=== PATIENT | male | born 1975 | race Caucasian/White ===

== ENCOUNTER 2019-06-30 12:55 | Inpatient (IN) ==
[2019-06-30 14:24] LABS: BASO# 0.02 X1000 (0.0-0.2); BASO% 0.4 % (0.0-0.8); EOS# 0.04 X1000 (0.0-0.7); EOS% 0.8 % (0.0-10.0); HEMATOCRIT 41.5 % (42.0-52.0); HEMOGLOBIN 13.5 g/dL (14.0-18.0); IMM GRAN# 0.02 X1000 (0.0-0.04); IMM GRAN% 0.4 % (0.0-0.5); LYMPH# 1.28 X1000 (1.2-3.4); LYMPH% 24.2 % (20.5-51.1); MCH 27.1 PG (27-31); MCHC 32.5 g/dL (33-37); MCV 83.3 FL (81-99); MONO# 0.72 X1000 (0.11-0.59); MONO% 13.6 % (1.7-9.3); MPV 9.9 FL (7.4-10.4); NEUT# 3.21 X1000 (1.4-6.5); NEUT% 60.6 % (42.2-75.2); PLT 252 X1000 (130-400); RBC 4.98 XMIL (4.7-6.1); RDW 13.1 % (11.5-14.5); WBC 5.29 X1000 (4.8-10.8)
[2019-06-30 14:36] LABS: AGAP 13; ALKALINE PHOSPHATASE 47 U/L (32-122); BUN 24 mg/dL (8-22); CALCIUM 8.9 mg/dL (8.8-10.2); CHLORIDE 104 mmol/L (98-107); COSMO 282; ESTIMATED GFR > 60; GLUCOSE 103 mg/dL (70-104); GOT 75 U/L (10-34); GPT 65 U/L (10-44); POTASSIUM 4.6 mmol/L (3.5-5.1); SODIUM 139 mmol/L (136-145); TCO2 22 mmol/L (25-35); TOTAL PROTEIN 7.4 g/dL (6.3-8.3)
--- NOTE | 2019-06-30 15:00 | Diag Imaging Result Doc PS360 ---
EXAM: CHEST-2 VIEWS HISTORY: sob/recent pna dx TECHNIQUE: PA and Lateral chest x-ray COMPARISON: None. FINDINGS: The cardiomediastinal silhouette is within normal limits. The pulmonary vasculature is not congested. There are bilateral perihilar interstitial infiltrates right greater than left. No pneumothorax is identified. There may be trace posterior effusions. Findings are suspicious for pneumonia, likely atypical pneumonia such as viral or mycoplasma. Recommend follow-up to document clearing. IMPRESSION: Bilateral interstitial infiltrates suspicious for pneumonia, possibly atypical pneumonia such as viral or mycoplasma pneumonia. Recommend follow-up to document complete clearing. Electronically signed by Yesica Hwang 06/30/2019 2:57 PM
[2019-06-30 15:41] LABS: BE 0.4 mmoll (-3.0-3.0); BLOOD TYPE ARTERIAL; HCO3-(ACT) 25.1 mmoll (20.0-26.0); O2(CT) 19.3 mL/dL (15.0-23.0); O2HB 93.6 % (95.0-99.0); PCO2(98.6) 32 mmHg (35-45); PO2(98.6) 64 mmHg (60-100); SAMPLE BLOOD; SAO2 96.3 % (95.0-100.0); THB 14.7 g/dL (11.5-17.4); pH(98.6) 7.47 (7.35-7.45)
[2019-06-30 15:45] LABS: ALLEN TEST YES; MODALITY ROOM AIR
--- NOTE | 2019-06-30 16:00 | PROVIDER DOCUMENTATION ---
This chart was entered by Bailey Sahni Scribe, acting as scribe for Jamir Diallo MD. HPI-Respiratory General - General Chief Complaint: Shortness of Breath Stated Complaint: FLU SX Time Seen by Provider: 06/30/19 14:49 Source: patient, family Allergies/Adverse Reactions: Patient Allergies Allergy/AdvReac Type Severity Reaction Status Date / Time No Known Allergies Allergy Verified 06/30/19 13:02 Home Medications: Home Medication List Medication Instructions Recorded Confirmed Last Taken Type Hydrocodone/APAP 5 mg/325 mg 1 - 2 tab PO Q6H PRN PRN #18 tablet 11/03/14 11/07/14 11/07/14 23:30 Rx [[place]-5] Promethazine [Phenergan] 1 - 2 tab PO Q6H PRN PRN #18 tablet 11/03/14 11/07/14 11/07/14 23:30 Rx Sertraline [Zoloft] 50 mg DAILY 11/03/14 11/07/14 11/06/14 History - History of Present Illness-Resp Nature of Presenting Problem: 43 yowm presents to the ed with c/o sob, productive cough and intermittent fever. pt was dx with flu and PNA on 06/26/19 and is currently on Levquin 750mg daily for 7 days but sts sx have not improved. Quality of Pain: reports: fullness Severity in ED: reports: moderate Onset/Duration: reports: other (06/26/19) Timing: reports: still present Context: reports: other (recent dx of flu and PNA) Cough Quality/Degree: reports: moderate, productive cough (brown sputum) Episode Frequency: other (recent dx) Current Respiratory Medication Therapy: Initiated see nurses note Modifying Factors: worse with: exertion, coughing Associated Symptoms: reports: cough, fever/chills, flu-like symptoms, hurts to breathe, shortness of breath, wheezing Similar Symptoms Previously?: Yes (dx flu and PNA) Recently seen or treated by another doctor?: Yes (pcp) Review of Systems - Adult - REVIEW OF SYSTEMS - ADULT Constitutional: reports: see HPI, chills, fever Eyes: reports: no symptoms reported Ears, Nose, Mouth & Throat: reports: no symptoms reported Cardiovascular: denies: chest pain, palpitations, syncope Respiratory: reports: see HPI, cough, dyspnea on exertion, excessive sputum production (brown), shortness of breath, wheezing Gastrointestinal: denies: diarrhea, nausea, vomiting Genitourinary: reports: no symptoms reported Musculoskeletal: denies: back pain, neck pain Integumentary: reports: no symptoms reported Neurological: denies: dizziness/vertigo, headache/migraines Psychiatric: reports: no symptoms reported Endocrine: reports: no symptoms reported Hematologic/Lymphatic: reports: no symptoms reported Allergic/Immunologic: reports: no symptoms reported All Other Systems: Reviewed and Negative Past History - Adult - PAST MEDICAL HISTORY-ADULT Review of Records: reports: Old Records Reviewed, Nursing Assessment Review, Medications Reviewed, Social history reviewed & non-contributory. 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) Musculoskeletal: reports: denies history Neurological: reports: denies history Psychiatric: reports: anxiety, depression Endocrine/Immune: reports: denies history Other Conditions: reports: denies history - PRIOR SURGERIES/PROCEDURES Surgical/Procedure History: reports: tonsillectomy - IMMUNIZATION STATUS Childhood Immunizations: See Nurse Assessment Flu Vaccine: See Nurse Assessment - FAMILY HISTORY Family History: reviewed, not pertinent - SOCIAL HISTORY Smoking: non-smoker Substance Use: alcohol Alcohol Use Frequency: occasionally Number of drinks per typical drinking period:: 3-4 drinks Living Situation: family Physical Exam-General - PHYSICAL EXAM-ADULT Initial Vital Signs Reviewed: Yes - CONSTITUTIONAL General Appearance: alert, no apparent distress (pt looks to not feel well) - EYES Eyes: PERRL/EOMI, pink conjunctivae - HEAD, EARS, NOSE, MOUTH & THROAT HENMT: moist mucous membranes, TMs normal, pharyngeal erythema - NECK Neck: non-tender, full range of motion, supple, normal inspection - RESPIRATORY Respiratory: chest non-tender, no pleuratic chest pain, no respiratory distress, no accessory muscle use, rhonchi (bilateral), wheezing (with expiration) - CARDIOVASCULAR Cardiovascular: normal peripheral pulses, regular rate, rhythm - CHEST (BREASTS) Chest/Breast: deferred - GASTROINTESTINAL (ABDOMEN) Abdominal Exam: normal bowel sounds, non tender, soft - GENITOURINARY Male Genitalia: deferred Rectal Exam: deferred Hemoccult Exam: deferred - LYMPHATIC Lymphatic: no adenopathy - MUSCULOSKELETAL Back Exam: normal inspection, no CVA tenderness, no vertebral tenderness Extremity: normal range of motion, non-tender, normal gait, normal inspection, pelvis stable - SKIN Integumentary: normal color, normal turgor, warm/dry - NEUROLOGIC Neurologic: grossly normal - PSYCHIATRIC Psych/Mental Status: normal mood/affect, normal thought content, normal thought process, oriented x 3 Progress - PLAN OF CARE/RESULTS Progress/Plan/Lab Results: Vital Signs - 8 hr 06/30/19 12:58 06/30/19 15:42 06/30/19 16:51 Temperature 97.5 F L Pulse Rate 84 74 67 Respiratory Rate 20 21 20 Blood Pressure 146/80 116/88 O2 Sat by Pulse Oximetry 95 96 Laboratory Results - last 24 hr 06/30/19 06/30/19 06/30/19 14:12 14:12 15:30 WBC 5.29 RBC 4.98 Hgb 13.5 L Hct 41.5 L MCV 83.3 MCH 27.1 MCHC 32.5 L RDW Std Deviation 13.1 Plt Count 252 MPV 9.9 Immature Gran % (Auto) 0.4 Neut % (Auto) 60.6 Lymph % (Auto) 24.2 Victoria % (Auto) 13.6 H Eos % (Auto) 0.8 Baso % (Auto) 0.4 Immature Gran # (Auto) 0.02 Neut # (Auto) 3.21 Lymph # (Auto) 1.28 Victoria # (Auto) 0.72 H Eos # (Auto) 0.04 Baso # (Auto) 0.02 Segmented Neutrophils Not Reportable Specimen Type ARTERIAL Sample Site L RADIAL pH 7.47 H pCO2 32 L pO2 64 HCO3 25.1 Base Excess 0.4 Oxyhemoglobin 93.6 L ABG O2 Sat (Calculated) 19.3 ABG O2 Saturation 96.3 ABG Carboxyhemoglobin 1.80 ABG Methemoglobin 1.0 Vj Test YES A-a O2 Difference 46.0 Total Hemoglobin 14.7 Lactate 0.80 Blood Gas Modality ROOM AIR FiO2 % 21.0 Sodium 139 Potassium 4.6 Chloride 104 Carbon Dioxide 22 L Anion Gap 13 BUN 24 H Creatinine 1.0 Estimated GFR/1.73 m2 > 60 BUN/Creatinine Ratio 24 Glucose 103 Calculated Osmolality 282 Calcium 8.9 Total Bilirubin 0.30 AST 75 H ALT 65 H Alkaline Phosphatase 47 Total Protein 7.4 Albumin 4.0 Globulin 3.0 Albumin/Globulin Ratio 1.0 Plasma Lactate 06/30/19 15:30 WBC RBC Hgb Hct MCV MCH MCHC RDW Std Deviation Plt Count MPV Immature Gran % (Auto) Neut % (Auto) Lymph % (Auto) Victoria % (Auto) Eos % (Auto) Baso % (Auto) Immature Gran # (Auto) Neut # (Auto) Lymph # (Auto) Victoria # (Auto) Eos # (Auto) Baso # (Auto) Segmented Neutrophils Specimen Type Sample Site pH pCO2 pO2 HCO3 Base Excess Oxyhemoglobin ABG O2 Sat (Calculated) ABG O2 Saturation ABG Carboxyhemoglobin ABG Methemoglobin Jv Test A-a O2 Difference Total Hemoglobin Lactate Blood Gas Modality FiO2 % Sodium Potassium Chloride Carbon Dioxide Anion Gap BUN Creatinine Estimated GFR/1.73 m2 BUN/Creatinine Ratio Glucose Calculated Osmolality Calcium Total Bilirubin AST ALT Alkaline Phosphatase Total Protein Albumin Globulin Albumin/Globulin Ratio Plasma Lactate 1.0 Orders Category Date Time Status Use ED:PneumoniaAdultSet As Ordered Care 06/30/19 14:04 Active CHEST-2 VIEWS [RAD] Stat Exams 06/30/19 14:04 Completed ABG [RESP] Routine Lab 06/30/19 15:30 Completed BLOOD CULTURE [BLDCUL] Stat Lab 06/30/19 14:05 Ordered CBC WITH ELECTRONIC DIFF [HEME] Stat Lab 06/30/19 14:12 Completed COMPREHENSIVE METABOLIC PANEL [CHEM] Stat Lab 06/30/19 14:12 Completed LACTATE, PLASMA [CHEM] Stat Lab 06/30/19 15:30 Completed Albuterol [Albuterol Neb] Med 06/30/19 16:22 Discontinued 2.5 mg INH NOW ONE Aerosol Treatments Routine Oth 06/30/19 16:22 Completed Aerosol Treatments Stat Oth 06/30/19 16:22 Completed Pneumonia (suspected) Stat Oth 06/30/19 14:04 Ordered Result Diagrams: 06/30/19 14:12 06/30/19 14:12 - REASSESSMENT Reassessment #1 Time Reassessed: 17:01 ( at bedside speaking with pt ) Status: unchanged - XRAY 1 XRAY: Bilateral XRAY Study: Chest Impression: See EMR Report (EXAM: CHEST-2 VIEWS HISTORY: sob/recent pna dx TECHNIQUE: PA and Lateral chest x-ray COMPARISON: None. FINDINGS: The cardiomediastinal silhouette is within normal limits. The pulmonary vasculature is not congested. There are bilateral perihilar interstitial infiltrates right greater than left. No pneumothorax is identified. There may be trace posterior effusions. Findings are suspicious for pneumonia, likely atypical pneumonia such as viral or mycoplasma. Recommend follow-up to document clearing. IMPRESSION: Bilateral interstitial infiltrates suspicious for pneumonia, possibly atypical pneumonia such as viral or mycoplasma pneumonia. Recommend follow-up to document complete clearing. Electronically signed by Yesica Hwang 06/30/2019 2:57 PM 06/30/19 1457 Interpreting Physician: Yesica Hwang MD Dictated Date/Time: 06/30/19 1453 cc: Jamir Diallo MD; Robert Gonzalez MD) - CONSULTS/PCP/HOSPITALIST Notification #1 *Consult/PCP/Hospitalist*: dr schrader hospitalist Time Discussed: 15:21 Reason/Comments: phone consult #2 Consult: dr schrader Time Discussed: 17:30 Consult Disposition: Will see in ED, Admit Departure - Departure Date of Disposition Decision: 06/30/19 Time of Disposition Decision: 17:30 DIAGNOSIS: Atypical pneumonia Disposition: ADMITTED INPATIENT 09 Certified Medical Emergency: Emergent Condition: Stable Referrals and Follow-Ups: Robert Gonzalez MD [Primary Care Provider] - - Critical Care Note This patient required my direct & personal management of CC.: No Attestation - Physician/ DARCY Attestation Patient care was provided by Advanced Practice Provider:: No The physician spent face to face time with patient:: Yes Advanced Practice Provider documentation review:: Supervising physician onsite and consulted in the evaluation and care of this patient. The physician did have a face to face encounter with the patient. This chart was documented by the indicated scribe, (Bailey Sahni Scribe) and accurately reflects the services I performed and decisions made by me, Jamir Diallo MD, as attested by the provider's signature.
[2019-06-30] MEDS ORDERED: ALBUTEROL NEB INH ONE (16:22)
[2019-06-30] MEDS ORDERED: DOXYCYCLINE 100 MG in NS 250 ML IV ONE (17:41)
[2019-06-30 17:51] LABS: URINE SOURCE CLEAN CATCH
[2019-06-30 17:54] LABS: BILIRUBIN URINE NEGATIVE (NEGATIVE); BLOOD URINE NEGATIVE (NEGATIVE); COLOR YELLOW; GLUCOSE URINE NEGATIVE (NEGATIVE); KETONE URINE NEGATIVE (NEGATIVE); LEUKOCYTES URINE NEGATIVE (NEGATIVE); NITRITE URINE NEGATIVE (NEGATIVE); PROTEIN URINE 30 mg/dL (NEGATIVE); SP GRAVITY URINE 1.032; TURBIDITY URINE CLEAR (CLEAR); UROBILINOGEN URINE NORMAL (NORMAL)
[2019-06-30 17:56] LABS: UR EPITHELIAL CELLS <10 /HPF (<10); URINE BACTERIA NEGATIVE /HPF; URINE RBC <10 /HPF (<10); URINE WBC <10 /HPF (<10)
[2019-06-30] MEDS ORDERED: NS 250 ML ONE (17:59)
[2019-06-30] MEDS: MAXIPIME 2 GM in NS 100 ML IV SCH (21:42)
--- NOTE | 2019-07-01 09:04 | HISTORY AND PHYSICAL ---
PRIMARY CARE PHYSICIAN[facility] CHIEF COMPLAINT: Subjective fever, productive cough and shortness of breath that has progressively worsened since he was diagnosed with the flu and pneumonia on 06/26/2019 and has had no improvement in his symptoms since being on Levaquin. HISTORY OF PRESENTING ILLNESS: This is a 43-year-old male who presents to [facility] ER with complaints of intermittent subjective fevers, a productive cough of some brown sputum, shortness of breath since being diagnosed with the flu and pneumonia on 06/26/2019 and was placed on Levaquin. States he has been taking the Levaquin without any improvement in his symptoms. His workup showed a chest x-ray with bilateral interstitial infiltrates suspicious for pneumonia, possibly atypical pneumonia such as viral or mycoplasma pneumonia. White count was 5.29. He was saturating in 95% on room air when he arrived. He was admitted for failed outpatient treatment for further evaluation and treatment. PAST MEDICAL HISTORY: Anxiety, depression. 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 PAST SURGICAL HISTORY: A right eye surgery from blunt force trauma, tonsil and adenoidectomy, and a cholecystectomy. FAMILY HISTORY: Reviewed and noncontributory. SOCIAL HISTORY: Currently lives with family. Denies any tobacco use. Drinks alcohol occasionally and denies any illicit drugs. ALLERGIES: He has no known drug allergies. HOME MEDICATIONS: He takes Zoloft 50 mg p.o. daily. LABORATORY DATA: Has a white blood cell count of 5.29, hemoglobin 13.5, hematocrit 41.5, platelets 252,000. ABG with a pH of 7.47, pCO2 32, PO2 64, bicarb 25.1, and this was on room air. Sodium of 139, potassium 4.6, chloride 104, CO2 22, BUN of 24, creatinine 1, glucose 103. Plasma lactate was 1. Urinalysis was negative. Chest x-ray showed bilateral interstitial infiltrate suspicious for pneumonia, possibly atypical pneumonia such as viral or mycoplasma pneumonia. Recommend follow up to document complete clearing. REVIEW OF SYSTEMS: He had a subjective fever, shortness of breath, a productive cough. Denied any blurred vision, dizziness, chest pain, abdominal pain, constipation, diarrhea, or burning or hurting with urination. PHYSICAL EXAMINATION: On arrival he had a temperature of 97.5 degrees, pulse 84, respirations 20, blood pressure 146/80, saturating 95% on room air. GENERAL: This is a 43-year-old male who is lying in the bed and answers questions appropriately. HEENT: Normocephalic, atraumatic. Normal ENT inspection. Oropharynx and nares are clear. EYES: Pupils are equal, round, reactive to light and accommodation. Extraocular movements are intact. NECK: Normal inspection, normal range of motion. LUNGS: With some bilateral rhonchi and wheezing with expiration. Equal lung expansion, chest wall movement noted. HEART: Regular rate and rhythm. No murmurs, rubs, or gallops. ABDOMEN: Soft, nontender, nondistended. Bowel sounds are present x4 quadrants. MUSCULOSKELETAL: Had 5/5 strength x4 extremities. NEUROLOGICAL: The cranial nerves 2-12 appear grossly intact. ASSESSMENT: 1. Bilateral pneumonia, likely an atypical with failed outpatient treatment. 2. Depression, history of. PLAN: He was admitted to the medical unit, placed on a regular diet. We will obtain blood cultures x2 and a sputum culture. Place on cefepime 2 g IV q.12 hours, DuoNeb q.4 hours, O2 per protocol. We will recheck a CBC, BMP in the a.m. Continue his home medication and further orders after seen by attending. Dictated by BAM Garcia for Darren Martin MD cc: BAM Garcia MD [facility]
[2019-07-01] MEDS: ZOLOFT PO SCH (09:52)
[2019-07-01] MEDS: MAXIPIME 2 GM in NS 100 ML IV SCH ×2 (09:53→20:44)
[2019-07-01] MEDS: DUONEB (A & A) INH SCH ×4 (11:13→23:10)
[2019-07-01] MEDS: DOXYCYCLINE 100 MG in NS 250 ML IV SCH ×2 (11:30→22:44)
[2019-07-01] MEDS ORDERED: TYLENOL PO PRN (11:31)
[2019-07-01] MEDS ORDERED: ZOFRAN IV PRN (11:31)
--- NOTE | 2019-07-01 13:32 | HISTORY AND PHYSICAL ---
Patient came in with shortness of breath. He has fevers, shortness of breath. He was diagnosed with the flu and then pneumonia. He was placed on Levaquin and he is not improve. He exhibited increased work of breathing. That being said he has no WBC, fever or hypoxia. We will continue to follow closely. We are going to continue breathing treatments and Mucinex and will see how things look. cc: Darren Martin MD MTDD
[2019-07-01] MEDS: MUCINEX PO SCH (20:44)
[2019-07-02] MEDS: DUONEB (A & A) INH SCH ×6 (03:21→22:57)
[2019-07-02 05:53] LABS: BASO# 0.01 X1000 (0.0-0.2); BASO% 0.2 % (0.0-0.8); EOS# 0.12 X1000 (0.0-0.7); EOS% 2.1 % (0.0-10.0); HEMATOCRIT 37.4 % (42.0-52.0); HEMOGLOBIN 11.7 g/dL (14.0-18.0); IMM GRAN# 0.01 X1000 (0.0-0.04); IMM GRAN% 0.2 % (0.0-0.5); LYMPH# 1.37 X1000 (1.2-3.4); LYMPH% 23.5 % (20.5-51.1); MCH 26.4 PG (27-31); MCHC 31.3 g/dL (33-37); MCV 84.4 FL (81-99); MONO# 0.65 X1000 (0.11-0.59); MONO% 11.2 % (1.7-9.3); MPV 9.9 FL (7.4-10.4); NEUT# 3.66 X1000 (1.4-6.5); NEUT% 62.8 % (42.2-75.2); PLT 260 X1000 (130-400); RBC 4.43 XMIL (4.7-6.1); RDW 13.2 % (11.5-14.5); WBC 5.82 X1000 (4.8-10.8)
[2019-07-02 06:11] LABS: AGAP 12; BUN 18 mg/dL (8-22); CALCIUM 8.3 mg/dL (8.8-10.2); CHLORIDE 107 mmol/L (98-107); COSMO 283; ESTIMATED GFR > 60; GLUCOSE 96 mg/dL (70-104); SODIUM 141 mmol/L (136-145); TCO2 22 mmol/L (25-35)
[2019-07-02 06:21] LABS: ALBUMIN 3.6 g/dL (3.5-5.0); DIRECT BILIRUBIN 0.2 mg/dL (0.00-0.20); TOTAL BILIRUBIN 0.4 mg/dL (0.20-1.00); TOTAL PROTEIN 6.4 g/dL (6.3-8.3)
[2019-07-02 06:39] LABS: HYPOCHROM OCCASIONAL; LYMPHS 20 % (21-51); MONO 8 % (1-9); SEGS 72 % (42-75)
--- NOTE | 2019-07-02 08:35 | Diag Imaging Result Doc PS360 ---
EXAM: US GB < RUQ (LIMITED) 07/02/2019 HISTORY: elevated liver enzymes TECHNIQUE: Right upper quadrant ultrasound COMMENT: The pancreas is not well demonstrated. The liver is minimally hyperechoic but otherwise grossly normal in appearance. The common bile duct is less than 3 mm in diameter. There is antegrade flow in the portal vein. The right kidney is without evidence of hydronephrosis or mass. It is somewhat enlarged measuring over 14 cm however this has not changed significantly since 11/03/2014. The gallbladder is surgically absent. IMPRESSION: Questionable hepatic steatosis. Otherwise no evidence of acute disease. Electronically signed by Sav Johnson 07/02/2019 8:33 AM
[2019-07-02] MEDS: MAXIPIME 2 GM in NS 100 ML IV SCH ×2 (09:37→19:47)
[2019-07-02] MEDS: ZOLOFT PO SCH (09:39)
[2019-07-02] MEDS: MUCINEX PO SCH ×2 (09:39→20:38)
[2019-07-02] MEDS: DOXYCYCLINE 100 MG in NS 250 ML IV SCH ×2 (10:57→20:38)
[2019-07-02 16:53] LABS: AGAP 13; ALBUMIN 3.7 g/dL (3.5-5.0); ALKALINE PHOSPHATASE 59 U/L (32-122); BUN 15 mg/dL (8-22); CALCIUM 8.5 mg/dL (8.8-10.2); CHLORIDE 107 mmol/L (98-107); COSMO 281; CREATININE 0.9 mg/dL (0.7-1.2); ESTIMATED GFR > 60; GLUCOSE 118 mg/dL (70-104); GOT 105 U/L (10-34); GPT 176 U/L (10-44); POTASSIUM 4.1 mmol/L (3.5-5.1); SODIUM 140 mmol/L (136-145); TCO2 20 mmol/L (25-35); TOTAL PROTEIN 7.1 g/dL (6.3-8.3)
--- NOTE | 2019-07-02 17:43 | PROGRESS NOTE ---
DATE: 07/02/2019 SUBJECTIVE: Patient has no major complaints. OBJECTIVE: Vital signs: Blood pressure is 136/70, heart rate of 63, respiratory rate 20, temperature 97.7 degrees, 96% on room air. Cardiovascular: Regular rate and rhythm. Pulmonary: Bilateral breath sounds. Clear to auscultation. GI: Soft, nontender, nondistended. Bowel sounds are positive. LABORATORY DATA: White count 5, hemoglobin and hematocrit 11 and 37, platelets 260,000. AST and ALT are 99 and 172, which is a bit higher. PROBLEM LIST: 1. Bilateral pneumonia, atypical. Really unclear what the etiology is. He had the flu so this is a post influenza pneumonia. All of his testing is pending. He is somewhat improved. No fevers. No hypoxia. He does feel short of breath when he walks. 2. Mild steatohepatitis. We will continue to monitor. Seems to be okay. Apparently he is supposed to be on fenofibrate; it is not listed in his home medications. Advised on weight loss control. We will do lipid profile tomorrow. DISPOSITION: I think if his chest x-ray is stable and he looks okay, probably home tomorrow. cc: Darren Martin MD
[2019-07-03] MEDS: DUONEB (A & A) INH SCH ×3 (03:44→11:04)
[2019-07-03 06:44] LABS: CHOLESTEROL 134 mg/dL (0-200); HDL 16 mg/dL (35-55); LDL 77 mg/dL; TRIGLYCERIDES 206 mg/dL (39-160); VLDL 41 mg/dL
[2019-07-03 06:45] LABS: BASO# 0.08 X1000 (0.0-0.2); BASO% 1.6 % (0.0-0.8); EOS# 0.15 X1000 (0.0-0.7); HEMATOCRIT 38.5 % (42.0-52.0); IMM GRAN# 0.02 X1000 (0.0-0.04); IMM GRAN% 0.4 % (0.0-0.5); LYMPH# 1.18 X1000 (1.2-3.4); LYMPH% 23.8 % (20.5-51.1); MCH 27.3 PG (27-31); MCHC 31.2 g/dL (33-37); MCV 87.7 FL (81-99); MONO# 0.63 X1000 (0.11-0.59); MONO% 12.7 % (1.7-9.3); MPV 10.8 FL (7.4-10.4); NEUT# 2.89 X1000 (1.4-6.5); NEUT% 58.5 % (42.2-75.2); PLT 105 X1000 (130-400); RBC 4.39 XMIL (4.7-6.1); RDW 13.5 % (11.5-14.5); WBC 4.95 X1000 (4.8-10.8)
[2019-07-03 07:24] LABS: EOS 3 % (1-10); LYMPHS 25 % (21-51); MONO 5 % (1-9); SEGS 67 % (42-75)
--- NOTE | 2019-07-03 07:39 | Diag Imaging Result Doc PS360 ---
EXAM: CHEST-2 VIEWS HISTORY: hypoxia TECHNIQUE: Two views COMPARISON: 06/30/2019 FINDINGS: The lungs are well expanded. No cardiomegaly. There are increased interstitial markings in the mid and lower lungs. Considering the differences in technique, these are quite similar to the prior exam. No pleural effusions. IMPRESSION: Persistent infiltrates with no interval improvement Electronically signed by Cristopher Baird 07/03/2019 7:37 AM
[2019-07-03] MEDS: MUCINEX PO SCH (09:14)
[2019-07-03] MEDS: ZOLOFT PO SCH (09:14)
[2019-07-03] MEDS: MAXIPIME 2 GM in NS 100 ML IV SCH (09:15)
[2019-07-03] MEDS: DOXYCYCLINE 100 MG in NS 250 ML IV SCH (09:56)
[2019-07-03 11:30] VITALS: BP 127/67
[2019-07-03 13:21] LABS: MYCOPLASMA PNEUMONIAE AB SEE COMMENTS
[2019-07-04 10:02] LABS: HEPATITIS PROFILE ACUTE SEE COMMENTS
--- NOTE | 2019-07-04 15:13 | DISCHARGE SUMMARY ---
ADMISSION DATE: 06/30/2019 DISCHARGE DATE: 07/03/2019 DISCHARGE DIAGNOSES: 1. Interstitial pneumonia, failing outpatient therapy. 2. Steatohepatitis. HISTORY: Briefly this is a 43-year-old male who was diagnosed with pneumonia on the and also the flu. He was treated for both. I think he had been on Levaquin for a couple days, but did not improve, came in for re-evaluation. He had increased work of breathing. No white count, no fever, no hypoxia but increased work of breathing and some increase in wheezing. The patient was admitted, placed on broad-spectrum antibiotics and he clinically improved. His repeat chest x-ray prior to discharge really was unchanged, but he sounded clear. No fevers, no hypoxia, and was felt stable for discharge. DISCHARGE MEDICATIONS: 1. Sertraline 50 daily. 2. Doxycycline 100 p.o. b.i.d. for 7 days. 3. Omnicef 300 p.o. b.i.d. for 7 days. 4. Ventolin inhaler t.i.d. DISCHARGE CONDITION: Stable. FOLLOWUP: Need to follow up with primary care physician and refer to Dr. Gonzalez but also needs a follow-up chest x-ray bold phase in 4 to 6 weeks. Return for worsening shortness of breath or cough. cc: Darren Martin MD
== END 2019-07-03 14:25 | disposition home or self-care (01) | DRG 197 ==
LOC: P.ED 12:55 → P.MEDSURG 12:56
PROVIDERS: ATTEND Internal Medicine